=== PATIENT | female | born 1990 | race Caucasian/White ===

== ENCOUNTER 2022-07-11 12:07 | Emergency (ER) | payer SELFPAY ==
[2022-07-11] VITALS (8 sets, daily range): BP systolic 100–136; BP diastolic 68–85
[~2022-07-11] VITALS: Ht 154.9 cm; Wt 100.0 kg
[2022-07-11 14:10] LABS: HEMATOCRIT 44.3 % (37.0-47.0); HEMOGLOBIN 14.4 g/dl (12.0-16.0); MEAN CELL VOLUME 94.5 fL CALC (80.0-100.0); MEAN CORPUSCULAR HGB 30.7 pG CALC (26.0-32.0); MEAN CORPUSCULAR HGB CONC 32.5 g/dL CAL (32.0-36.0); NEUT# 3.41 thou/uL (2.00-7.15); RED BLOOD COUNT 4.69 mill/uL (4.20-5.60); RED CELL DISTRI WIDTH 14.5 % (11.5-15.5)
[2022-07-11 14:21] LABS: ALKALINE PHOSPHATASE 184 u/l (38-126); ANION GAP 11 (6-22 (CALC)); BILIRUBIN, TOTAL 0.4 mg/dL (0.0-1.4); BUN 4 mg/dL (7-17); BUN/CREATININE RATIO 6 (12-20 (CALC)); CARBON DIOXIDE 21 mmol/l (22-30); CHLORIDE 113 mmol/l (95-108); CREATININE 0.7 mg/dL (0.5-1.0); GFR FOR AFR.AMER. > 60 ML/MIN (>=60 (CALC)); GFR OTHER RACES > 60 ML/MIN (>=60 (CALC)); POTASSIUM 4.4 mmol/l (3.5-5.1); SGOT/AST 53 u/l (14-36); SODIUM 141 mmol/l (137-146); TOTAL PROTEIN 7.2 g/dL (6.3-8.2)
[2022-07-11 14:29] LABS: URINE BILIRUBIN - DIPSTICK NEGATIVE (NEGATIVE); URINE BLOOD DIPSTICK NEGATIVE (NEGATIVE); URINE COLOR YELLOW; URINE GLUCOSE - DIPSTICK NEGATIVE (NEGATIVE); URINE KETONE NEGATIVE (NEGATIVE); URINE PH 5.5 (4.5-8.0); URINE PROTEIN - DIPSTICK NEGATIVE (NEG-TRACE); URINE UROBILINOGEN - DIPSTICK 0.2 E.U./dL (0.2)
[2022-07-11 14:31] LABS: URINE LEUK ESTERASE MODERATE (NEGATIVE); URINE NITRITE - DIPSTICK NEGATIVE (Negative)
[2022-07-11 14:32] LABS: URINE BACTERIA FEW hpf; URINE EPITHELIAL CELLS FEW EPI/hpf (0-FEW)
[2022-07-11] MEDS ORDERED: BACTRIM DS1 TAB PO (16:52)
[2022-07-11] MEDS ORDERED: OMNICEF300 M1 PO (16:52)
== END 2022-07-11 16:57 | disposition home or self-care (01) | DRG 690 ==
LOC: ED 12:07
PROVIDERS: Internal Medicine
DX: N39.0 Urinary tract infection, site not specified (principal); L03.112 Cellulitis of left axilla; L03.111 Cellulitis of right axilla; B95.62 Methicillin resistant Staphylococcus aureus infection as the cause of diseases classified elsewhere

== ENCOUNTER 2022-08-14 13:00 | Emergency (ER) | payer SELFPAY ==
[~2022-08-14] VITALS: Ht 154.9 cm; Wt 88.0 kg
[~2022-08-14 13:00] MED LIST: BACTRIM DS1 TAB PO; OMNICEF300 M1 PO
[2022-08-14] MEDS ORDERED: OMNI-PAC300 MG PO (13:45)
[2022-08-14 14:39] VITALS: BP 114/79
[2022-08-14 15:00] VITALS: BP 91/66
[2022-08-14 15:30] VITALS: BP 89/58
[2022-08-14] MEDS ORDERED: KURIC21 EX (15:41)
[2022-08-14] MEDS ORDERED: DIFLUCAN150 MG PO (15:41)
[2022-08-14 16:01] VITALS: BP 102/75
[2022-08-14 16:14] VITALS: BP 102/75
== END 2022-08-14 16:33 | disposition home or self-care (01) | DRG 607 ==
LOC: ED 13:00
DX: B36.9 Superficial mycosis, unspecified (principal)

== ENCOUNTER 2022-08-28 21:04 | Emergency (ER) | payer SELFPAY ==
[~2022-08-28] VITALS: Ht 154.9 cm; Wt 95.0 kg
[~2022-08-28 21:04] MED LIST changes: +DIFLUCAN150 MG PO; +KURIC21 EX; +OMNI-PAC300 MG PO
[2022-08-28] MEDS ORDERED: GENTAMICIN SULF5 ML OD (22:45)
[2022-08-28 23:45] VITALS: BP 117/80
== END 2022-08-28 23:50 | disposition home or self-care (01) | DRG 125 ==
LOC: ED 21:04
DX: S05.01XA Injury of conjunctiva and corneal abrasion without foreign body, right eye, initial encounter (principal); S00.201A Unspecified superficial injury of right eyelid and periocular area, initial encounter; X58.XXXA Exposure to other specified factors, initial encounter; F17.210 Nicotine dependence, cigarettes, uncomplicated